=== PATIENT | female | born 1990 | race Hispanic/Latino ===

== ENCOUNTER 2018-03-19 23:31 | Emergency (ER) | payer SELFPAY ==
[~2018-03-19] VITALS: Ht 144.8 cm; Wt 77.1 kg
--- NOTE | 2018-03-20 00:28 | Diagnostic Imaging Report ---
CHEST 2 VIEWS, Technique: CHEST 2 VIEWS Comparison: None Clinical history: Shortness of breath DISCUSSION: Cardiomediastinal is within normal limits. No consolidation or edema. No effusion or pneumothorax. IMPRESSION: No acute abnormality Signed by: Dr Vale Thomson MD on 03/20/2018 12:24 AM
== END 2018-03-20 00:24 | disposition home or self-care (01) ==
LOC: ER 23:40
DX: R06.09 Other forms of dyspnea (principal); R05 Cough; R73.03 Prediabetes
CPT/HCPCS: 71046; 93005; 99283